=== PATIENT | male | born 1965 | race Caucasian/White ===

== ENCOUNTER 2017-11-03 16:02 | Outpatient (CLI) | payer SELFPAY | END 2017-11-03 18:02 | disposition home or self-care (01) | LOC: WCC 16:02 | DX: Z53.9 Procedure and treatment not carried out, unspecified reason (principal) ==

== ENCOUNTER 2017-11-04 14:50 | Outpatient (RCR) | payer SELFPAY | END 2017-11-18 | disposition home or self-care (01) | LOC: WCC 14:50 | DX: I69.111 Memory deficit following nontraumatic intracerebral hemorrhage (principal); R47.89 Other speech disturbances; I10 Essential (primary) hypertension | CPT/HCPCS: G0277 ×10 ==

== ENCOUNTER 2018-01-05 09:30 | Outpatient (RCR) | payer SELFPAY | END 2018-01-18 | disposition home or self-care (01) | LOC: WCC 09:30 | DX: I69.111 Memory deficit following nontraumatic intracerebral hemorrhage (principal); R47.89 Other speech disturbances; I10 Essential (primary) hypertension | CPT/HCPCS: G0277 ×10 ==

== ENCOUNTER 2018-02-16 10:30 | Outpatient (RCR) | payer SELFPAY | END 2018-02-18 | disposition home or self-care (01) | LOC: WCC 10:30 | DX: I69.111 Memory deficit following nontraumatic intracerebral hemorrhage (principal); R47.89 Other speech disturbances; I10 Essential (primary) hypertension | CPT/HCPCS: G0277 ×3 ==

== ENCOUNTER 2018-02-19 10:30 | Outpatient (RCR) | payer SELFPAY | END 2018-03-20 | disposition home or self-care (01) | LOC: WCC 10:30 | DX: I69.111 Memory deficit following nontraumatic intracerebral hemorrhage (principal); R47.89 Other speech disturbances; Z87.820 Personal history of traumatic brain injury; I10 Essential (primary) hypertension | CPT/HCPCS: G0277 ×7 ==

== ENCOUNTER 2018-08-27 14:00 | Outpatient (RCR) | payer SELFPAY | END 2018-09-18 | disposition home or self-care (01) | LOC: WCC 14:00 | DX: I69.011 Memory deficit following nontraumatic subarachnoid hemorrhage (principal); R47.89 Other speech disturbances | CPT/HCPCS: G0277 ×10 ==

== ENCOUNTER 2018-11-16 10:02 | Outpatient (RCR) | payer SELFPAY | END 2018-11-18 | disposition home or self-care (01) | LOC: WCC 10:02 | DX: I69.011 Memory deficit following nontraumatic subarachnoid hemorrhage (principal); R47.89 Other speech disturbances | CPT/HCPCS: G0277 ×3 ==

== ENCOUNTER 2018-11-19 08:33 | Outpatient (RCR) | payer SELFPAY | END 2018-12-19 | disposition home or self-care (01) | LOC: WCC 08:33 | DX: I69.111 Memory deficit following nontraumatic intracerebral hemorrhage (principal); R47.89 Other speech disturbances | CPT/HCPCS: G0277 ×7 ==

== ENCOUNTER 2019-02-15 11:54 | Outpatient (RCR) | payer SELFPAY | END 2019-02-18 | disposition home or self-care (01) | LOC: WCC 11:54 | DX: I69.111 Memory deficit following nontraumatic intracerebral hemorrhage (principal); R47.89 Other speech disturbances | CPT/HCPCS: G0277 ×4 ==

== ENCOUNTER 2019-02-19 08:00 | Outpatient (RCR) | payer SELFPAY | END 2019-03-20 | disposition home or self-care (01) | LOC: WCC 08:00 | DX: I69.111 Memory deficit following nontraumatic intracerebral hemorrhage (principal); R47.89 Other speech disturbances | CPT/HCPCS: G0277 ×6 ==